=== PATIENT | male | born 1980 | race Caucasian/White ===

== ENCOUNTER 2021-01-05 06:25 | Emergency (ER) | payer OTHER ==
[~2021-01-05] VITALS: Ht 177.8 cm; Wt 72.6 kg
--- NOTE | 2021-01-05 06:30 | NUR ---
PT AMBULATED TO ER WITH C/O BLE AND LUE SWELLING AND REDNESS. A/O X3, NO SOB OR LABORED BREATHING, AFEBRILE. DENIES CP/PRESSURE.
--- NOTE | 2021-01-05 07:10 | NUR ---
GAVE REPORT TO NAT ABBOTT).
[2021-01-05] MEDS ORDERED: VANCOMYCIN 1G/D5W 200 ML PIGGYBACK IV ONE (07:15)
[2021-01-05] MEDS ORDERED: VANCOMYCIN IV 200 ML ONE (07:35)
--- NOTE | 2021-01-05 07:50 | NUR ---
Started IV 20g right AC.
[2021-01-05] MEDS ORDERED: SULF1TAB48 PO (08:33)
[2021-01-05 08:54] LABS: HEMATOCRIT 36.4 % (36.7-47.1); MEAN CORPUSCULAR HEMOGLOBIN 29.6 uug (23.8-33.4); MEAN CORPUSCULAR VOLUME 88.2 fL (73.0-96.2); PLATELET COUNT (AUTO) 370 K/uL (152-348)
[2021-01-05 09:01] LABS: CREATININE 0.8 mg/dL (0.6-1.3); POTASSIUM 3.4 mmol/L (3.5-5.1)
--- NOTE | 2021-01-05 10:05 | NUR ---
Removed IV intact, site benign, bandaged. Gave pt RX and d/c instructions, pt verbalized understanding.
== END 2021-01-05 10:14 | disposition home or self-care (01) ==
LOC: ER 06:33
DX: L03.116 Cellulitis of left lower limb (principal); R60.0 Localized edema; S71.102A Unspecified open wound, left thigh, initial encounter; X58.XXXA Exposure to other specified factors, initial encounter; Y92.89 Other specified places as the place of occurrence of the external cause; Z59.0 Homelessness; F17.200 Nicotine dependence, unspecified, uncomplicated
CPT/HCPCS: 36415; 73551; 80048; 83880; 85025; 93971; 96365; 96366; 99284; J3370; A4663